=== PATIENT | female | born 1960 | race Hispanic/Latino ===

== ENCOUNTER 2020-11-01 21:20 | Inpatient (IN) | payer OTHER ==
[2020-11-01] MEDS ORDERED: Norepinephrine 8 MG/0.9% NS 250 ML ONE (22:07)
[2020-11-01 22:12] LABS: Hemoglobin 14.5 g/dL (12.0-15.5); Mean Corpuscular HGB CONC 33.8 g/dL (32.0-36.0); Mean Corpuscular Hemoglobin 30.7 pg (27.0-33.0); Mean Corpuscular Volume 90.7 fl (81.6-98.3); Mean Platelet Volume 11.6 fl (7.4-10.4); Platelet Count 131 10x3/uL (150-450); RBC Distribution Width 11.9 % (11.5-14.5); Red Blood Cell (RBC) Count 4.73 10x6/uL (3.90-5.03); White Blood Cell (WBC) Count 29.3 10x3/uL (3.5-10.5)
[2020-11-01 22:21] LABS: ALT (SGPT) 33 U/L (8-55); AST (SGOT) 24 U/L (5-34); Albumin 3.9 g/dL (3.5-5.0); Alkaline Phosphatase 234 U/L (40-110); Anion Gap 26 mmol/L (10-20); BUN (Urea Nitrogen) 26 mg/dL (9.8-20.1); Bilirubin, Total 0.3 mg/dL (0.2-1.2); CK (CPK) 440 U/L (29-168); Calc. Creatinine Clearance 0 mL/min (70-130); Carbon Dioxide 18 mmol/L (22-29); Chloride 95 mmol/L (98-107); Globulin 2.6 g/dL (2.4-3.5); Protein, Total 6.5 g/dL (6.0-8.3); Sodium 136 mmol/L (136-145)
[2020-11-01 22:27] LABS: Glucose 601 mg/dL (70-105); Potassium 2.9 mmol/L (3.5-5.1)
[2020-11-01 22:40] LABS: Bilirubin Neg (Negative); Blood, Urine 10 (Negative); Clarity Clear (Clear); Glucose, Urine (Dipstick) >=1000 mg/dL (Negative); Ketone, Urine Negative (Negative); Leukocyte Negative (Negative); Nitrite Negative (Negative); Protein, Urine (Dipstick) 30 mg/dl (Neg-Trace); Specific Gravity, Urine 1.015 (1.002-1.036); Urobilinogen Normal mg/dL (Less than 2)
[2020-11-01 22:46] LABS: Eosinophils 2 % (0-10); Lymphocytes 2 % (21-51); Metamyelocyte 7 % (0-0); Monocytes 4 % (0-10)
[2020-11-01 22:53] LABS: Band 36 % (5-11)
[2020-11-01 22:54] LABS: Myelocyte 4 % (0-0); Neutrophil 43 % (42-75); Reactive Lymphocytes 2 % (0-10)
[2020-11-01 22:58] LABS: Vacuoles MARKED
[2020-11-01] MEDS ORDERED: Potassium Chloride 20 MEQ/100 ML PREMIX BAG ONE (22:58)
[2020-11-01] MEDS ORDERED: Piperacillin/Tazobactam 4.5 GM VIAL ONE (22:58)
[2020-11-01 22:59] LABS: Dohle Bodies MODERATE; Giant Platelets MODERATE; Large Platelets MODERATE; Platelet Clumps SLIGHT; Platelet Morphology Comment Appears Decreased; Toxic Granulation SLIGHT
[2020-11-01 23:03] LABS: BHCG - Serum Negative (NEGATIVE); Pregs Control Background? CLEAR/WHITE (CLR/WHITE); Pregs Control Bar Appear? YES (CONTROL BAR)
[2020-11-01 23:03] LABS: RBC/HPF None Seen HPF (0-3); Squamous Epithelial 0-3 HPF (0-3); WBC/HPF None Seen HPF (0-3)
[2020-11-01 23:04] LABS: Bacteria/HPF 2+ HPF (None Seen); Mucous/LPF 1+ LPF (<2+)
[2020-11-01 23:05] LABS: Phosphorus 3.2 mg/dL (2.3-4.7)
[2020-11-01 23:06] LABS: MDiff Complete? YES; Manual Diff?? YES
[2020-11-01 23:07] LABS: Magnesium 1.3 mg/dL (1.6-2.6); RBC Morphology Normal
[2020-11-01 23:14] LABS: SARS-CoV-2 NAA Rapid Test Not Detected (NotDetected)
[2020-11-01] MEDS ORDERED: Magnesium 2 GM/50 ML BAG (IN WATER) ONE (23:47)
[2020-11-02] MEDS ORDERED: Hydrocortisone Sod Succ/PF 100 mg/2 ml Vial ONE (00:02)
[2020-11-02] MEDS ORDERED: Meropenem 500 MG VIAL ONE (00:19)
[2020-11-02] MEDS ORDERED: Sodium Chloride 0.9% 1,000 ML IV SCH (01:00)
[2020-11-02] MEDS ORDERED: Meropenem 2 GM in Sodium Chloride 0.9% 100 ML IVPB SCH (01:00)
[2020-11-02] MEDS ORDERED: Vancomycin HCl 500 MG in Sodium Chloride 0.9% 100 ML IVPB SCH (01:15)
[2020-11-02] MEDS: INSULIN REGULAR IN 0.9 % NACL 100 UNIT in Premix Bag 1 BAG IVPB SCH ×2 (02:00→18:44)
[2020-11-02] MEDS: Potassium Chloride 20 MEQ in Premix Bag 1 BAG IVPB SCH ×3 (02:00→04:23)
[2020-11-02] MEDS: Acetaminophen 325 MG TAB PO PRN ×2 (02:21→22:51)
[2020-11-02 02:53] LABS: Phosphorus 3.4 mg/dL (2.3-4.7)
[2020-11-02 02:55] LABS: Anion Gap 21 mmol/L (10-20); Globulin 2.6 g/dL (2.4-3.5)
[2020-11-02 03:02] LABS: Troponin I 0.015 ng/mL (< 0.028)
[2020-11-02 03:04] LABS: Lactic Acid 5.8 mmol/L (0.5-2.2)
[2020-11-02 03:09] LABS: ALT (SGPT) 27 U/L (8-55); AST (SGOT) 23 U/L (5-34); Albumin 3.1 g/dL (3.5-5.0); Alkaline Phosphatase 208 U/L (40-110); BUN (Urea Nitrogen) 25 mg/dL (9.8-20.1); Bilirubin, Total 0.4 mg/dL (0.2-1.2); Calc. Creatinine Clearance 31 mL/min (70-130); Calcium 7.6 mg/dL (7.8-10.44); Carbon Dioxide 15 mmol/L (22-29); Chloride 105 mmol/L (98-107); Glucose 492 mg/dL (70-105); Protein, Total 5.7 g/dL (6.0-8.3); Sodium 137 mmol/L (136-145)
[2020-11-02] MEDS ORDERED: Sodium Chloride 0.9% 500 ML IV SCH (04:30)
[2020-11-02] MEDS ORDERED: Magnesium 2 GM/50 ML 2 GM in Premix Bag 1 BAG IVPB SCH (04:30)
[2020-11-02] MEDS: Norepinephrine 8 MG/0.9% NS 250 ML IVPB SCH ×4 (04:37→21:23)
[2020-11-02 04:50] LABS: Actual Bicarbonate (HCO3a) 12.1 mEq/L (22-28); Base Excess (BEa) -13.1 mEq/L (-2.0 to +3.0); CO2 Tension 26.5 mmHg (35.0-45.0); Calcium, Ionized (arterial) 1.06 mmol/L (1.12-1.30); Carboxyhemoglobin (COHb) 0.5 gm% (0.0-3.0); Hemoglobin (Hb) 12.8 g/dL (12.0-16.0); O2 Tension (PaO2), arterial 71.4 mmHg (80.0-100.0); Potassium - ABG Lab 3.8 mmol/L (3.70-5.30); Puncture Site LRA; pH, Arterial 7.28 (7.35-7.45)
[2020-11-02 06:40] LABS: Anion Gap 21 mmol/L (10-20); BUN (Urea Nitrogen) 25 mg/dL (9.8-20.1); Calc. Creatinine Clearance 30 mL/min (70-130); Calcium 7.6 mg/dL (7.8-10.44); Carbon Dioxide 13 mmol/L (22-29); Chloride 111 mmol/L (98-107); Glucose 272 mg/dL (70-105); Magnesium 2.4 mg/dL (1.6-2.6); Potassium 3.6 mmol/L (3.5-5.1); Sodium 141 mmol/L (136-145)
[2020-11-02 06:46] LABS: Lactic Acid 8.3 mmol/L (0.5-2.2)
[2020-11-02 06:47] LABS: Troponin I 0.035 ng/mL (< 0.028)
[2020-11-02] MEDS ORDERED: Albumin 5% 250 ML ONE (07:14)
[2020-11-02] MEDS ORDERED: Lactated Ringer's 1,000 ML IV SCH (07:45)
[2020-11-02] MEDS: Phenylephrine 40 MG in Sodium Chloride 0.9% 250 ML 250 ML IVPB SCH ×2 (07:45→13:54)
[2020-11-02] MEDS ORDERED: Sodium Bicarb 50 MEQ/50 ML VIAL IVP SCH (07:45)
[2020-11-02] MEDS: Hydrocortisone Sod Succ/PF 100 mg/2 ml Vial IVP SCH ×2 (08:28→16:34)
[2020-11-02] MEDS: Fluconazole In NaCl,Iso-Osm 200 MG in Premix Bag 1 BAG IVPB SCH (08:28)
[2020-11-02 08:41] LABS: Hemoglobin 12.2 g/dL (12.0-15.5); MDiff Complete? YES; Mean Corpuscular HGB CONC 33.9 g/dL (32.0-36.0); Mean Corpuscular Hemoglobin 30.9 pg (27.0-33.0); Mean Corpuscular Volume 91.1 fl (81.6-98.3); Mean Platelet Volume 11.5 fl (7.4-10.4); Platelet Count 75 10x3/uL (150-450); Red Blood Cell (RBC) Count 3.95 10x6/uL (3.90-5.03); White Blood Cell (WBC) Count 17.7 10x3/uL (3.5-10.5)
[2020-11-02 08:57] LABS: Dohle Bodies SLIGHT; RBC Morphology Normal; Vacuoles SLIGHT
[2020-11-02] MEDS ORDERED: Heparin 5,000 UNITS/ML VIAL SC SCH (09:00)
[2020-11-02] MEDS ORDERED: Sodium Bicarbonate 150 MEQ in Dextrose 5% w/ 20 mEq KCl 1,000 ML IV SCH (09:15)
[2020-11-02] MEDS: Ondansetron PF 4 MG/2 ML Vial IVP PRN ×2 (09:26→18:07)
[2020-11-02] MEDS: Sodium Bicarbonate 150 MEQ in Dextrose 5% w/ 20 mEq KCl 1,000 ML IV SCH ×3 (09:49→21:23)
[2020-11-02] MEDS: Lorazepam 2 MG/ML VIAL SLOW IVP PRN ×2 (10:16→19:32)
[2020-11-02] MEDS ORDERED: Iopamidol 0 ML FS ONE (10:47)
[2020-11-02] MEDS: Meropenem 500 MG in Sodium Chloride 0.9% 100 ML IVPB SCH (11:25)
[2020-11-02 12:51] LABS: Anion Gap 17 mmol/L (10-20); BUN (Urea Nitrogen) 26 mg/dL (9.8-20.1); Calc. Creatinine Clearance 28 mL/min (70-130); Calcium 7.4 mg/dL (7.8-10.44); Carbon Dioxide 18 mmol/L (22-29); Chloride 111 mmol/L (98-107); Glucose 257 mg/dL (70-105); Sodium 142 mmol/L (136-145)
[2020-11-02] MEDS ORDERED: Dexamethasone 4 mg/ml Vial ONE (14:27)
[2020-11-02] MEDS ORDERED: Ondansetron PF 4 MG/2 ML Vial ONE (14:27)
[2020-11-02] MEDS ORDERED: PHENYLEPHRINE-NS 100 MCG/ML 10 ML SYRINGE ONE (14:28)
[2020-11-02] MEDS ORDERED: Lidocaine 1% PF 5 ML VIAL ONE (14:28)
[2020-11-02] MEDS ORDERED: PROPOFOL 20 ML ONE (14:29)
[2020-11-02] MEDS ORDERED: Fentanyl 100 MCG/2 ML VIAL ONE (14:29)
[2020-11-02] MEDS ORDERED: Iopamidol 20 ML FS ONE (14:37)
[2020-11-02] MEDS ORDERED: Metoclopramide HCl 10 MG/2 ML VIAL ONE (15:12)
[2020-11-02] MEDS ORDERED: Iopamidol 30 ML ONE (15:13)
[2020-11-02 16:50] LABS: Anion Gap 18 mmol/L (10-20); BUN (Urea Nitrogen) 28 mg/dL (9.8-20.1); Calc. Creatinine Clearance 27 mL/min (70-130); Calcium 7.3 mg/dL (7.8-10.44); Carbon Dioxide 18 mmol/L (22-29); Chloride 108 mmol/L (98-107); Glucose 288 mg/dL (70-105); Potassium 4.4 mmol/L (3.5-5.1); Sodium 140 mmol/L (136-145)
[2020-11-02 17:03] LABS: Hemoglobin 12.7 g/dL (12.0-15.5); Mean Corpuscular HGB CONC 33.5 g/dL (32.0-36.0); Mean Corpuscular Hemoglobin 30.4 pg (27.0-33.0); Mean Corpuscular Volume 90.7 fl (81.6-98.3); Mean Platelet Volume 12.4 fl (7.4-10.4); Platelet Count 65 10x3/uL (150-450); RBC Distribution Width 12.5 % (11.5-14.5); Red Blood Cell (RBC) Count 4.18 10x6/uL (3.90-5.03); White Blood Cell (WBC) Count 20.5 10x3/uL (3.5-10.5)
[2020-11-02 18:26] LABS: MDiff Complete? YES
[2020-11-02] MEDS ORDERED: Rocuronium Bromide 10 MG/ML (10ML VIAL) ONE (19:05)
[2020-11-02] MEDS ORDERED: Succinylcholine 200 MG/10 ml SYRINGE FS ONE (19:05)
[2020-11-02 19:07] LABS: Band 7 % (5-11)
[2020-11-02 19:10] LABS: Lymphocytes 8 % (21-51); Metamyelocyte 2 % (0-0); Monocytes 5 % (0-10); Myelocyte 1 % (0-0); Neutrophil 76 % (42-75); Reactive Lymphocytes 1 % (0-10)
[2020-11-02 19:38] LABS: Platelet Morphology Comment Appears Decreased; RBC Morphology Normal
[2020-11-02 20:50] LABS: Actual Bicarbonate (HCO3a) 21.1 mEq/L (22-28); Base Excess (BEa) -3.1 mEq/L (-2.0 to +3.0); CO2 Tension 35.3 mmHg (35.0-45.0); Carboxyhemoglobin (COHb) 0.3 gm% (0.0-3.0); Hemoglobin (Hb) 13.1 g/dL (12.0-16.0); O2 Tension (PaO2), arterial 61.1 mmHg (80.0-100.0)
[2020-11-02 20:53] LABS: ALV-art Gradient 244.145 mmHg (0-20)
[2020-11-02] MEDS ORDERED: Furosemide 40 MG/4 ML VIAL SLOW IVP SCH (21:30)
[2020-11-02 21:49] LABS: Anion Gap 16 mmol/L (10-20)
[2020-11-02 21:56] LABS: BUN (Urea Nitrogen) 29 mg/dL (9.8-20.1); Calc. Creatinine Clearance 26 mL/min (70-130); Calcium 7.3 mg/dL (7.8-10.44); Carbon Dioxide 22 mmol/L (22-29); Chloride 106 mmol/L (98-107); Glucose 210 mg/dL (70-105); Phosphorus 1.5 mg/dL (2.3-4.7); Potassium 3.9 mmol/L (3.5-5.1); Sodium 140 mmol/L (136-145)
[2020-11-02] MEDS ORDERED: Sodium Phosphate 15 MMOL in Sodium Chloride 0.9% 250 ML 250 ML IVPB SCH (22:45)
[2020-11-03] MEDS: Meropenem 500 MG in Sodium Chloride 0.9% 100 ML IVPB SCH ×2 (00:01→11:23)
[2020-11-03] MEDS: Hydrocortisone Sod Succ/PF 100 mg/2 ml Vial IVP SCH ×3 (00:01→15:46)
[2020-11-03 01:42] LABS: Anion Gap 16 mmol/L (10-20); BUN (Urea Nitrogen) 30 mg/dL (9.8-20.1); Calc. Creatinine Clearance 25 mL/min (70-130); Calcium 7.3 mg/dL (7.8-10.44); Carbon Dioxide 25 mmol/L (22-29); Chloride 105 mmol/L (98-107); Glucose 152 mg/dL (70-105); Magnesium 1.9 mg/dL (1.6-2.6); Potassium 4.1 mmol/L (3.5-5.1); Sodium 142 mmol/L (136-145)
[2020-11-03 01:46] LABS: Phosphorus 1.8 mg/dL (2.3-4.7)
[2020-11-03] MEDS: Lorazepam 2 MG/ML VIAL SLOW IVP PRN (02:03)
[2020-11-03 04:42] LABS: Hemoglobin 12.1 g/dL (12.0-15.5); Mean Corpuscular HGB CONC 34.6 g/dL (32.0-36.0); Mean Corpuscular Hemoglobin 30.5 pg (27.0-33.0); Mean Corpuscular Volume 88.2 fl (81.6-98.3); Mean Platelet Volume 11.8 fl (7.4-10.4); Platelet Count 56 10x3/uL (150-450); RBC Distribution Width 12.4 % (11.5-14.5); Red Blood Cell (RBC) Count 3.97 10x6/uL (3.90-5.03); White Blood Cell (WBC) Count 25.4 10x3/uL (3.5-10.5)
[2020-11-03] MEDS ORDERED: Furosemide 100 MG/10 ML VIAL SLOW IVP SCH (04:45)
[2020-11-03 05:00] LABS: Anion Gap 15 mmol/L (10-20); BUN (Urea Nitrogen) 32 mg/dL (9.8-20.1); Calc. Creatinine Clearance 25 mL/min (70-130); Calcium 7.3 mg/dL (7.8-10.44); Carbon Dioxide 28 mmol/L (22-29); Chloride 104 mmol/L (98-107); Glucose 195 mg/dL (70-105); Magnesium 1.9 mg/dL (1.6-2.6); Potassium 4.2 mmol/L (3.5-5.1); Sodium 143 mmol/L (136-145)
[2020-11-03 05:03] LABS: Phosphorus 1.9 mg/dL (2.3-4.7)
[2020-11-03 05:14] LABS: Troponin I 0.505 ng/mL (< 0.028)
[2020-11-03] MEDS: INSULIN REGULAR IN 0.9 % NACL 100 UNIT in Premix Bag 1 BAG IVPB SCH (05:16)
[2020-11-03 05:17] LABS: ALV-art Gradient 254.375 mmHg (0-20); Actual Bicarbonate (HCO3a) 25.5 mEq/L (22-28); Base Excess (BEa) 1.1 mEq/L (-2.0 to +3.0); CO2 Tension 39.7 mmHg (35.0-45.0); Calcium, Ionized (arterial) 0.96 mmol/L (1.12-1.30); Carboxyhemoglobin (COHb) 0.7 gm% (0.0-3.0); Hemoglobin (Hb) 12.9 g/dL (12.0-16.0); O2 Tension (PaO2), arterial 52.5 mmHg (80.0-100.0); Potassium - ABG Lab 3.7 mmol/L (3.70-5.30); Puncture Site LRA; pH, Arterial 7.43 (7.35-7.45)
[2020-11-03 05:20] LABS: Band 28 % (5-11); Lymphocytes 5 % (21-51); Metamyelocyte 2 % (0-0); Monocytes 8 % (0-10); Myelocyte 1 % (0-0); Neutrophil 54 % (42-75); Reactive Lymphocytes 2 % (0-10)
[2020-11-03 05:22] LABS: Dohle Bodies MARKED; Large Platelets SLIGHT; Toxic Granulation SLIGHT; Vacuoles MARKED
[2020-11-03 05:23] LABS: Platelet Morphology Comment Appears Decreased
[2020-11-03 05:24] LABS: MDiff Complete? YES; Manual Diff?? YES; RBC Morphology Normal
[2020-11-03] MEDS: Sodium Bicarbonate 150 MEQ in Dextrose 5% w/ 20 mEq KCl 1,000 ML IV SCH (06:05)
[2020-11-03] MEDS: Fluconazole In NaCl,Iso-Osm 200 MG in Premix Bag 1 BAG IVPB SCH (07:52)
[2020-11-03] MEDS ORDERED: Furosemide 40 MG/4 ML VIAL SLOW IVP SCH ×2 (08:30→17:30)
[2020-11-03] MEDS: Norepinephrine 8 MG/0.9% NS 250 ML IVPB SCH ×2 (08:50→20:42)
[2020-11-03] MEDS ORDERED: Enoxaparin Sodium 30 MG/0.3 ML SYRINGE SC SCH (09:00)
[2020-11-03 11:22] LABS: Actual Bicarbonate (HCO3a) 24.8 mEq/L (22-28); Base Excess (BEa) 1.2 mEq/L (-2.0 to +3.0); CO2 Tension 36.3 mmHg (35.0-45.0); Calcium, Ionized (arterial) 0.93 mmol/L (1.12-1.30); Carboxyhemoglobin (COHb) 0.3 gm% (0.0-3.0); Hemoglobin (Hb) 13.1 g/dL (12.0-16.0); O2 Tension (PaO2), arterial 58.3 mmHg (80.0-100.0); Potassium - ABG Lab 3.8 mmol/L (3.70-5.30); Puncture Site RBA; pH, Arterial 7.45 (7.35-7.45)
[2020-11-03 11:24] LABS: ALV-art Gradient 324.125 mmHg (0-20)
[2020-11-03 12:08] LABS: Phosphorus 2.6 mg/dL (2.3-4.7)
[2020-11-03] MEDS ORDERED: Fentanyl BOLUS 250 ML IVPB PRN (14:30)
[2020-11-03] MEDS ORDERED: Propofol BOLUS 1,000 MG/100 ML VIAL IV PRN (14:30)
[2020-11-03] MEDS ORDERED: Heparin 5,000 UNITS/ML VIAL SC SCH (15:00)
[2020-11-03] MEDS ORDERED: Dextrose 5% in Water 1,000 ML IV PRN (15:42)
[2020-11-03] MEDS ORDERED: Dextrose 50% Abboject 50 ML SYRINGE SLOW IVP PRN (15:42)
[2020-11-03] MEDS: Propofol 1,000 MG/100 ML VIAL IV PRN ×2 (15:43→21:25)
[2020-11-03] MEDS: Fentanyl CADD 100 ML IV SCH (15:44)
[2020-11-03 15:55] LABS: Actual Bicarbonate (HCO3a) 25.5 mEq/L (22-28); Base Excess (BEa) 0.8 mEq/L (-2.0 to +3.0); Calcium, Ionized (arterial) 0.93 mmol/L (1.12-1.30); Carboxyhemoglobin (COHb) 0.4 gm% (0.0-3.0); Hemoglobin (Hb) 13.8 g/dL (12.0-16.0); Puncture Site LRA; pH, Arterial 7.41 (7.35-7.45)
[2020-11-03] MEDS ORDERED: VANCOMYCIN 1.25 GM/250 ML BAG 1.25 GM in Premix Bag 1 BAG IVPB SCH ×2 (18:00→18:30)
[2020-11-03] MEDS ORDERED: Atorvastatin Calcium 40 MG TAB PO SCH (18:00)
[2020-11-03] MEDS ORDERED: Aspirin Chewable 81 MG TAB PER TUBE SCH (18:00)
[2020-11-03] MEDS ORDERED: Atorvastatin Calcium 40 MG TAB PER TUBE SCH (18:00)
[2020-11-03] MEDS ORDERED: Enoxaparin Sodium 80 MG/0.8 ML SYRINGE SC SCH (18:00)
[2020-11-03 18:05] LABS: Magnesium 1.8 mg/dL (1.6-2.6); Phosphorus 3.1 mg/dL (2.3-4.7)
[2020-11-03 18:14] LABS: Troponin I 1.852 ng/mL (< 0.028)
[2020-11-03 20:38] LABS: Hemoglobin A1c 12.6 % (4.0-6.0)
[2020-11-03] MEDS ORDERED: Famotidine/PF 20 mg/2ml Vial SLOW IVP SCH (21:00)
[2020-11-03 21:03] LABS: Hemoglobin 11.9 g/dL (12.0-15.5)
[2020-11-03 21:04] LABS: Platelet Count 52 10x3/uL (150-450)
[2020-11-03] MEDS: HumaLOG 300 UNITS/3 ML VIAL SC PRN (21:25)
[2020-11-03] MEDS ORDERED: Vancomycin HCl 1 GM in Sodium Chloride 0.9% 250 ML 250 ML IVPB SCH (22:00)
[2020-11-04] MEDS: Hydrocortisone Sod Succ/PF 100 mg/2 ml Vial IVP SCH (00:01)
[2020-11-04] MEDS: Meropenem 500 MG in Sodium Chloride 0.9% 100 ML IVPB SCH ×2 (00:02→12:15)
[2020-11-04] MEDS ORDERED: Vancomycin HCl 1 GM in Sodium Chloride 0.9% 250 ML 300 ML IVPB SCH (00:45)
[2020-11-04] MEDS: Propofol 1,000 MG/100 ML VIAL IV PRN ×3 (03:51→18:22)
[2020-11-04 04:09] LABS: Hemoglobin 11.9 g/dL (12.0-15.5); Mean Corpuscular HGB CONC 33.3 g/dL (32.0-36.0); Mean Corpuscular Volume 89.9 fl (81.6-98.3); Mean Platelet Volume 12.5 fl (7.4-10.4); Platelet Count 58 10x3/uL (150-450); RBC Distribution Width 13.1 % (11.5-14.5); Red Blood Cell (RBC) Count 3.97 10x6/uL (3.90-5.03); White Blood Cell (WBC) Count 29.4 10x3/uL (3.5-10.5)
[2020-11-04 04:27] LABS: Anion Gap 24 mmol/L (10-20); BUN (Urea Nitrogen) 52 mg/dL (9.8-20.1); CK (CPK) 148 U/L (29-168); Calc. Creatinine Clearance 22 mL/min (70-130); Calcium 7.1 mg/dL (7.8-10.44); Carbon Dioxide 20 mmol/L (22-29); Chloride 102 mmol/L (98-107); Glucose 309 mg/dL (70-105); Potassium 4.4 mmol/L (3.5-5.1); Sodium 142 mmol/L (136-145)
[2020-11-04 04:45] LABS: CKMB 3.6 ng/mL (0-6.6)
[2020-11-04 05:00] LABS: MDiff Complete? YES
[2020-11-04] MEDS: Norepinephrine 8 MG/0.9% NS 250 ML IVPB SCH (05:05)
[2020-11-04 05:07] LABS: Band 32 % (5-11); Lymphocytes 7 % (21-51); Monocytes 16 % (0-10); Neutrophil 45 % (42-75)
[2020-11-04 05:09] LABS: Anisocytosis SLIGHT = 6-15 cells (100X) (0-5/hpf); Platelet Morphology Comment Appears Adequate; Poikilocytosis SLIGHT = 6-15 cells (100X) (0-5/hpf); Toxic Granulation SLIGHT; Vacuoles SLIGHT
[2020-11-04] MEDS ORDERED: Heparin 10,000 UNITS/ 10 ML VIAL SLOW IVP SCH (06:00)
[2020-11-04] MEDS ORDERED: Heparin 25,000 units/D5W 500 ML IVPB SCH (06:00)
[2020-11-04] MEDS: HumaLOG 300 UNITS/3 ML VIAL SC PRN ×4 (06:55→21:36)
[2020-11-04 09:18] LABS: D-Dimer Test 5.62 mg/L FEU (0.19-0.50); INR-International Normal Ratio 1.1; PTT 34.5 sec (22.0-33.0)
[2020-11-04] MEDS: Fluconazole In NaCl,Iso-Osm 200 MG in Premix Bag 1 BAG IVPB SCH (09:20)
[2020-11-04] MEDS: Lantus 1000 UNITS/10 ML VIAL SC SCH (09:20)
[2020-11-04] MEDS: Aspirin Chewable 81 MG TAB PER TUBE SCH (09:20)
[2020-11-04] MEDS: Fentanyl CADD 100 ML IV SCH (11:36)
[2020-11-04] MEDS ORDERED: Lidocaine 4% Topical Sol 50 ML BOT ONE (12:34)
[2020-11-04 13:44] LABS: Actual Bicarbonate (HCO3a) 19.7 mEq/L (22-28); Base Excess (BEa) -4.1 mEq/L (-2.0 to +3.0); CO2 Tension 32.2 mmHg (35.0-45.0); Calcium, Ionized (arterial) 0.97 mmol/L (1.12-1.30); Carboxyhemoglobin (COHb) 0.3 gm% (0.0-3.0); Hemoglobin (Hb) 12.6 g/dL (12.0-16.0); Potassium - ABG Lab 4.3 mmol/L (3.70-5.30); Puncture Site RRA
[2020-11-04] MEDS: Enoxaparin Sodium 80 MG/0.8 ML SYRINGE SC SCH (17:29)
[2020-11-04 18:54] LABS: Vancomycin, Random 22.2 ug/mL (See Comment)
[2020-11-04] MEDS: Famotidine/PF 20 mg/2ml Vial SLOW IVP SCH (20:53)
[2020-11-05] MEDS: Meropenem 500 MG in Sodium Chloride 0.9% 100 ML IVPB SCH ×2 (00:55→12:35)
[2020-11-05] MEDS: HumaLOG 300 UNITS/3 ML VIAL SC PRN ×3 (00:55→12:36)
[2020-11-05] MEDS: Propofol 1,000 MG/100 ML VIAL IV PRN ×3 (01:03→22:00)
[2020-11-05 04:14] LABS: Hemoglobin 11.2 g/dL (12.0-15.5); Mean Corpuscular HGB CONC 34.1 g/dL (32.0-36.0); Mean Corpuscular Hemoglobin 30.6 pg (27.0-33.0); Mean Corpuscular Volume 89.6 fl (81.6-98.3); Mean Platelet Volume 12.2 fl (7.4-10.4); Platelet Count 50 10x3/uL (150-450); Red Blood Cell (RBC) Count 3.66 10x6/uL (3.90-5.03); White Blood Cell (WBC) Count 17.2 10x3/uL (3.5-10.5)
[2020-11-05 04:23] LABS: Anion Gap 16 mmol/L (10-20); BUN (Urea Nitrogen) 69 mg/dL (9.8-20.1); Calc. Creatinine Clearance 21 mL/min (70-130); Calcium 7.3 mg/dL (7.8-10.44); Carbon Dioxide 27 mmol/L (22-29); Chloride 106 mmol/L (98-107); Glucose 223 mg/dL (70-105); Potassium 3.6 mmol/L (3.5-5.1); Sodium 145 mmol/L (136-145)
[2020-11-05 05:37] LABS: MDiff Complete? YES
[2020-11-05 05:41] LABS: Band 47 % (5-11); Lymphocytes 13 % (21-51); Metamyelocyte 1 % (0-0); Monocytes 4 % (0-10); Neutrophil 35 % (42-75)
[2020-11-05 05:43] LABS: Anisocytosis SLIGHT = 6-15 cells (100X) (0-5/hpf); Rouleaux Formation SLIGHT = 1-5 cells (100X) (None Seen); Toxic Granulation SLIGHT; Vacuoles SLIGHT
[2020-11-05 05:44] LABS: Platelet Morphology Comment Appears Decreased
[2020-11-05] MEDS: Lantus 1000 UNITS/10 ML VIAL SC SCH (08:03)
[2020-11-05] MEDS: Fluconazole In NaCl,Iso-Osm 200 MG in Premix Bag 1 BAG IVPB SCH (08:03)
[2020-11-05] MEDS: Aspirin Chewable 81 MG TAB PER TUBE SCH (08:03)
[2020-11-05 10:22] LABS: Vancomycin, Random 19.1 ug/mL (See Comment)
[2020-11-05] MEDS: Fentanyl CADD 100 ML IV SCH (10:54)
[2020-11-05 11:36] LABS: ALV-art Gradient 122.375 mmHg (0-20); Actual Bicarbonate (HCO3a) 24.1 mEq/L (22-28); Base Excess (BEa) 2.1 mEq/L (-2.0 to +3.0); CO2 Tension 29.5 mmHg (35.0-45.0); Calcium, Ionized (arterial) 1.02 mmol/L (1.12-1.30); Carboxyhemoglobin (COHb) 0.3 gm% (0.0-3.0); Hemoglobin (Hb) 11.9 g/dL (12.0-16.0); O2 Tension (PaO2), arterial 232.9 mmHg (80.0-100.0); Potassium - ABG Lab 3.5 mmol/L (3.70-5.30); Puncture Site RRA; pH, Arterial 7.53 (7.35-7.45)
[2020-11-05] MEDS: Enoxaparin Sodium 80 MG/0.8 ML SYRINGE SC SCH (17:28)
[2020-11-05] MEDS: cefTRIAXone\\ROCEPHIN 2 GM in Sodium Chloride 0.9% 100 ML IVPB SCH (17:28)
[2020-11-05] MEDS: Famotidine/PF 20 mg/2ml Vial SLOW IVP SCH (20:09)
[2020-11-06] MEDS: HumaLOG 300 UNITS/3 ML VIAL SC PRN ×3 (01:34→08:16)
[2020-11-06 04:09] LABS: Anion Gap 16 mmol/L (10-20); BUN (Urea Nitrogen) 81 mg/dL (9.8-20.1); Calc. Creatinine Clearance 21 mL/min (70-130); Calcium 7.6 mg/dL (7.8-10.44); Carbon Dioxide 28 mmol/L (22-29); Chloride 104 mmol/L (98-107); Glucose 151 mg/dL (70-105); Hemoglobin 10.4 g/dL (12.0-15.5); Mean Corpuscular HGB CONC 33.7 g/dL (32.0-36.0); Mean Corpuscular Hemoglobin 30.8 pg (27.0-33.0); Mean Corpuscular Volume 91.4 fl (81.6-98.3); Mean Platelet Volume 12.3 fl (7.4-10.4); Platelet Count 53 10x3/uL (150-450); Potassium 3.5 mmol/L (3.5-5.1); RBC Distribution Width 13.3 % (11.5-14.5); Red Blood Cell (RBC) Count 3.38 10x6/uL (3.90-5.03); Sodium 144 mmol/L (136-145); White Blood Cell (WBC) Count 14.8 10x3/uL (3.5-10.5)
[2020-11-06 05:25] LABS: MDiff Complete? YES
[2020-11-06 05:30] LABS: Anisocytosis SLIGHT = 6-15 cells (100X) (0-5/hpf); Band 45 % (5-11); Eosinophils 1 % (0-10); Lymphocytes 10 % (21-51); Monocytes 4 % (0-10); Neutrophil 40 % (42-75); Poikilocytosis SLIGHT = 6-15 cells (100X) (0-5/hpf); Toxic Granulation SLIGHT; Vacuoles SLIGHT
[2020-11-06 05:31] LABS: Platelet Morphology Comment Appears Decreased
[2020-11-06] MEDS: Propofol 1,000 MG/100 ML VIAL IV PRN (07:05)
[2020-11-06] MEDS: Aspirin Chewable 81 MG TAB PER TUBE SCH (08:15)
[2020-11-06] MEDS: Fluconazole In NaCl,Iso-Osm 200 MG in Premix Bag 1 BAG IVPB SCH (08:15)
[2020-11-06] MEDS: Lantus 1000 UNITS/10 ML VIAL SC SCH (08:16)
[2020-11-06] MEDS ORDERED: Vancomycin HCl 500 MG in Sodium Chloride 0.9% 100 ML IVPB SCH (09:00)
[2020-11-06 09:27] LABS: Actual Bicarbonate (HCO3a) 27.2 mEq/L (22-28); Base Excess (BEa) 2.7 mEq/L (-2.0 to +3.0); CO2 Tension 41.5 mmHg (35.0-45.0); Calcium, Ionized (arterial) 1.06 mmol/L (1.12-1.30); Carboxyhemoglobin (COHb) 0.1 gm% (0.0-3.0); Hemoglobin (Hb) 12.1 g/dL (12.0-16.0); Potassium - ABG Lab 3.6 mmol/L (3.70-5.30); Puncture Site RRA; RapidComm Collect By EA; pH, Arterial 7.43 (7.35-7.45)
[2020-11-06 09:30] LABS: ALV-art Gradient 108.325 mmHg (0-20)
[2020-11-06] MEDS ORDERED: Furosemide 40 MG/4 ML VIAL SLOW IVP SCH (11:15)
[2020-11-06] MEDS: cefTRIAXone\\ROCEPHIN 2 GM in Sodium Chloride 0.9% 100 ML IVPB SCH (16:30)
[2020-11-06] MEDS: Enoxaparin Sodium 80 MG/0.8 ML SYRINGE SC SCH (17:08)
[2020-11-06] MEDS: Cefepime 2 GM in Sodium Chloride 0.9% 100 ML IVPB SCH (17:40)
[2020-11-06] MEDS: Famotidine/PF 20 mg/2ml Vial SLOW IVP SCH (20:16)
[2020-11-07] MEDS: Cefepime 2 GM in Sodium Chloride 0.9% 100 ML IVPB SCH ×2 (05:53→17:05)
[2020-11-07] MEDS: Fluconazole In NaCl,Iso-Osm 200 MG in Premix Bag 1 BAG IVPB SCH (07:57)
[2020-11-07] MEDS: Aspirin Chewable 81 MG TAB PER TUBE SCH (07:57)
[2020-11-07 08:22] LABS: Hemoglobin 11.8 g/dL (12.0-15.5); Mean Corpuscular HGB CONC 32.7 g/dL (32.0-36.0); Mean Corpuscular Hemoglobin 30.1 pg (27.0-33.0); Mean Corpuscular Volume 92.1 fl (81.6-98.3); Mean Platelet Volume 11.6 fl (7.4-10.4); Platelet Count 92 10x3/uL (150-450); RBC Distribution Width 13.2 % (11.5-14.5); Red Blood Cell (RBC) Count 3.92 10x6/uL (3.90-5.03); White Blood Cell (WBC) Count 17.1 10x3/uL (3.5-10.5)
[2020-11-07] MEDS ORDERED: Furosemide 40 MG/4 ML VIAL SLOW IVP SCH (08:30)
[2020-11-07 08:42] LABS: MDiff Complete? YES
[2020-11-07 08:44] LABS: Anion Gap 19 mmol/L (10-20); BUN (Urea Nitrogen) 69 mg/dL (9.8-20.1); Calc. Creatinine Clearance 22 mL/min (70-130); Carbon Dioxide 28 mmol/L (22-29); Chloride 103 mmol/L (98-107); Glucose 225 mg/dL (70-105); Potassium 3.5 mmol/L (3.5-5.1); Sodium 146 mmol/L (136-145)
[2020-11-07 08:46] LABS: Band 7 % (5-11); Eosinophils 1 % (0-10); Lymphocytes 17 % (21-51); Monocytes 10 % (0-10); Neutrophil 65 % (42-75)
[2020-11-07 08:47] LABS: Platelet Morphology Comment Appears Decreased
[2020-11-07] MEDS: Lantus 1000 UNITS/10 ML VIAL SC SCH (08:47)
[2020-11-07] MEDS: HumaLOG 300 UNITS/3 ML VIAL SC PRN ×4 (08:59→23:09)
[2020-11-07] MEDS ORDERED: Valsartan 80 MG TAB PO SCH (09:00)
[2020-11-07] MEDS ORDERED: Hydrochlorothiazide 25 MG TAB PO SCH (09:00)
[2020-11-07] MEDS: Enoxaparin Sodium 80 MG/0.8 ML SYRINGE SC SCH (17:05)
[2020-11-07] MEDS: Famotidine/PF 20 mg/2ml Vial SLOW IVP SCH (22:28)
[2020-11-08] MEDS ORDERED: Cefepime 2 GM VIAL ONE ×2 (04:36→15:59)
[2020-11-08] MEDS: Cefepime 2 GM in Sodium Chloride 0.9% 100 ML IVPB SCH ×2 (04:39→16:00)
[2020-11-08] MEDS: HumaLOG 300 UNITS/3 ML VIAL SC PRN ×4 (04:50→21:26)
[2020-11-08 05:31] LABS: Albumin 2.7 g/dL (3.5-5.0); Anion Gap 14 mmol/L (10-20); BUN (Urea Nitrogen) 57 mg/dL (9.8-20.1); BUN/Creatinine Ratio 21.51; Calc. Creatinine Clearance 24 mL/min (70-130); Calcium 7.8 mg/dL (7.8-10.44); Carbon Dioxide 31 mmol/L (22-29); Chloride 99 mmol/L (98-107); Glucose 165 mg/dL (70-105); Phosphorus 4.1 mg/dL (2.3-4.7); Potassium 3.2 mmol/L (3.5-5.1); Sodium 141 mmol/L (136-145)
[2020-11-08] MEDS: Lantus 1000 UNITS/10 ML VIAL SC SCH (08:20)
[2020-11-08] MEDS: Fluconazole In NaCl,Iso-Osm 200 MG in Premix Bag 1 BAG IVPB SCH (08:28)
[2020-11-08] MEDS: Aspirin Chewable 81 MG TAB PER TUBE SCH (08:28)
[2020-11-08 09:53] LABS: Bilirubin Neg (Negative); Blood, Urine 250 (Negative); Clarity Cloudy (Clear); Glucose, Urine (Dipstick) 100 mg/dL (Negative); Ketone, Urine Negative (Negative); Leukocyte 100 (Negative); Nitrite Negative (Negative); Protein, Urine (Dipstick) 30 mg/dl (Neg-Trace); Urobilinogen Normal mg/dL (Less than 2)
[2020-11-08 09:56] LABS: Urine Culture Reflex No No
[2020-11-08 10:38] LABS: RBC/HPF Greater than 50 HPF (0-3); Squamous Epithelial 0-3 HPF (0-3)
[2020-11-08 10:39] LABS: Bacteria/HPF None Seen HPF (None Seen)
[2020-11-08] MEDS ORDERED: Sodium Chloride 0.9% 100 ML ONE (15:59)
[2020-11-08] MEDS: Enoxaparin Sodium 80 MG/0.8 ML SYRINGE SC SCH (16:01)
[2020-11-08] MEDS: Famotidine/PF 20 mg/2ml Vial SLOW IVP SCH (21:04)
[2020-11-08] MEDS: Metoprolol Tartrate 25 MG TAB PO SCH (21:13)
[2020-11-08] MEDS: Enoxaparin Sodium 30 MG/0.3 ML SYRINGE SC SCH (22:56)
[2020-11-09] MEDS: Lorazepam 2 MG/ML VIAL SLOW IVP PRN (00:04)
[2020-11-09] MEDS: Cefepime 2 GM in Sodium Chloride 0.9% 100 ML IVPB SCH (05:12)
[2020-11-09 06:53] LABS: Albumin 2.7 g/dL (3.5-5.0); Anion Gap 14 mmol/L (10-20); BUN (Urea Nitrogen) 45 mg/dL (9.8-20.1); BUN/Creatinine Ratio 20.64; Calc. Creatinine Clearance 30 mL/min (70-130); Calcium 7.9 mg/dL (7.8-10.44); Carbon Dioxide 32 mmol/L (22-29); Chloride 99 mmol/L (98-107); Glucose 185 mg/dL (70-105); Phosphorus 3.6 mg/dL (2.3-4.7); Potassium 3.1 mmol/L (3.5-5.1); Sodium 142 mmol/L (136-145)
[2020-11-09 08:42] LABS: Fungus Stain Final report (.)
[2020-11-09] MEDS: Pantoprazole 40 MG GRANULES PACKET PO SCH (09:20)
[2020-11-09] MEDS: Aspirin Chewable 81 MG TAB PER TUBE SCH (09:20)
[2020-11-09] MEDS: Metoprolol Tartrate 25 MG TAB PO SCH ×2 (09:20→22:00)
[2020-11-09] MEDS: Potassium Chloride 20 MEQ TAB PO SCH ×2 (09:20→16:20)
[2020-11-09] MEDS: Lantus 1000 UNITS/10 ML VIAL SC SCH (09:21)
[2020-11-09] MEDS: HumaLOG 300 UNITS/3 ML VIAL SC PRN ×2 (12:25→16:20)
[2020-11-09] MEDS: Ondansetron PF 4 MG/2 ML Vial IVP PRN (12:51)
[2020-11-09] MEDS: Enoxaparin Sodium 30 MG/0.3 ML SYRINGE SC SCH (22:00)
[2020-11-09] MEDS: Acetaminophen 325 MG TAB PO PRN (23:58)
[2020-11-10] MEDS: HumaLOG 300 UNITS/3 ML VIAL SC PRN ×5 (00:16→20:10)
[2020-11-10 05:35] LABS: #Eosinphils 0.1 10x3/uL (0.0-0.5); #Neutrophils 12.1 10x3/uL (1.5-8.4); %Basophils 0.2 % (0.0-2.0); %Eosinophils 0.7 % (0.0-6.0); %Lymphocytes 15.7 % (18.0-47.0); %Monocytes 6.4 % (0.0-10.0); Hemoglobin 10.9 g/dL (12.0-15.5); Mean Corpuscular HGB CONC 32.9 g/dL (32.0-36.0); Mean Corpuscular Hemoglobin 29.9 pg (27.0-33.0); Mean Corpuscular Volume 90.7 fl (81.6-98.3); Mean Platelet Volume 10.8 fl (7.4-10.4); Platelet Count 224 10x3/uL (150-450); Red Blood Cell (RBC) Count 3.65 10x6/uL (3.90-5.03); White Blood Cell (WBC) Count 16.1 10x3/uL (3.5-10.5)
[2020-11-10 05:39] LABS: Albumin 2.8 g/dL (3.5-5.0); Anion Gap 15 mmol/L (10-20); BUN (Urea Nitrogen) 36 mg/dL (9.8-20.1); BUN/Creatinine Ratio 18.27; Calc. Creatinine Clearance 33 mL/min (70-130); Carbon Dioxide 27 mmol/L (22-29); Chloride 101 mmol/L (98-107); Glucose 214 mg/dL (70-105); Phosphorus 3.4 mg/dL (2.3-4.7); Potassium 3.8 mmol/L (3.5-5.1); Sodium 139 mmol/L (136-145)
[2020-11-10] MEDS: Cefepime 2 GM in Sodium Chloride 0.9% 100 ML IVPB SCH (06:18)
[2020-11-10] MEDS: Metoprolol Tartrate 25 MG TAB PO SCH ×2 (09:05→20:07)
[2020-11-10] MEDS: Aspirin Chewable 81 MG TAB PER TUBE SCH (09:05)
[2020-11-10] MEDS: Lantus 1000 UNITS/10 ML VIAL SC SCH (09:05)
[2020-11-10] MEDS: Pantoprazole 40 MG GRANULES PACKET PO SCH (09:05)
[2020-11-10] MEDS: Acetaminophen 325 MG TAB PO PRN (11:24)
[2020-11-10 12:59] VITALS: BMI 25.4
[2020-11-10] MEDS: Enoxaparin Sodium 30 MG/0.3 ML SYRINGE SC SCH (20:06)
[2020-11-11] MEDS: HumaLOG 300 UNITS/3 ML VIAL SC PRN ×2 (01:45→12:00)
[2020-11-11 05:23] LABS: Anion Gap 12 mmol/L (10-20); BUN (Urea Nitrogen) 31 mg/dL (9.8-20.1); BUN/Creatinine Ratio 18.02; Calc. Creatinine Clearance 37 mL/min (70-130); Calcium 8.2 mg/dL (7.8-10.44); Carbon Dioxide 28 mmol/L (22-29); Chloride 99 mmol/L (98-107); Glucose 182 mg/dL (70-105); Phosphorus 3.7 mg/dL (2.3-4.7); Potassium 3.6 mmol/L (3.5-5.1); Sodium 135 mmol/L (136-145)
[2020-11-11] MEDS: Cefepime 2 GM in Sodium Chloride 0.9% 100 ML IVPB SCH (06:43)
[2020-11-11 07:42] VITALS: TEMP 98.3
[2020-11-11] MEDS: Metoprolol Tartrate 25 MG TAB PO SCH (08:35)
[2020-11-11] MEDS: Aspirin Chewable 81 MG TAB PER TUBE SCH (08:35)
[2020-11-11] MEDS: Pantoprazole 40 MG GRANULES PACKET PO SCH (08:35)
[2020-11-11] MEDS: Lantus 1000 UNITS/10 ML VIAL SC SCH (08:36)
[2020-11-11 11:45] VITALS: BP 125/69
[2020-12-01 16:11] LABS: Fungus Culture Final report (.)
== END 2020-11-11 15:52 | DRG 853 ==
LOC: CSHERS 21:20 → CSHIMCU 11-02 00:54 → CSHTELE 11-07 16:22
PROVIDERS: ADMIT Family Medicine; ATTEND Hospitalist
PROC: 3E053XZ Introduction of Vasopressor into Peripheral Artery, Percutaneous Approach (ICD-10-PCS; principal; 2020-11-02)
PROC: 0T768DZ Dilation of Right Ureter with Intraluminal Device, Via Natural or Artificial Opening Endoscopic (ICD-10-PCS; 2020-11-02)
PROC: 02HV33Z Insertion of Infusion Device into Superior Vena Cava, Percutaneous Approach (ICD-10-PCS; 2020-11-02)
PROC: 0BH17EZ Insertion of Endotracheal Airway into Trachea, Via Natural or Artificial Opening (ICD-10-PCS; 2020-11-03)
PROC: 5A1945Z Respiratory Ventilation, 24-96 Consecutive Hours (ICD-10-PCS; 2020-11-03)
DX: A41.51 Sepsis due to Escherichia coli [E. coli] (principal); R65.21 Severe sepsis with septic shock; J80 Acute respiratory distress syndrome; N17.0 Acute kidney failure with tubular necrosis; I21.A1 Myocardial infarction type 2; E87.2 Acidosis; N13.6 Pyonephrosis; D62 Acute posthemorrhagic anemia; E87.0 Hyperosmolality and hypernatremia; Z20.822 Contact with and (suspected) exposure to COVID-19; E87.6 Hypokalemia; E83.42 Hypomagnesemia; E11.65 Type 2 diabetes mellitus with hyperglycemia; E11.40 Type 2 diabetes mellitus with diabetic neuropathy, unspecified; F17.210 Nicotine dependence, cigarettes, uncomplicated; M79.7 Fibromyalgia; E78.5 Hyperlipidemia, unspecified; D69.6 Thrombocytopenia, unspecified; E87.70 Fluid overload, unspecified; E11.22 Type 2 diabetes mellitus with diabetic chronic kidney disease; I12.9 Hypertensive chronic kidney disease with stage 1 through stage 4 chronic kidney disease, or unspecified chronic kidney disease; N18.9 Chronic kidney disease, unspecified; Z79.84 Long term (current) use of oral hypoglycemic drugs; Z82.3 Family history of stroke; Z90.710 Acquired absence of both cervix and uterus; Z88.8 Allergy status to other drugs, medicaments and biological substances; Z82.49 Family history of ischemic heart disease and other diseases of the circulatory system; Z79.899 Other long term (current) drug therapy
CPT/HCPCS: 0240U; 36415; 36416; 36556; 36600; 51600; 51701; 70450; 71045; 71250; 74177; 74430; 80048; 80053; 80069; 80202; 81001; 81003; 81015; 82010; 82542; 82550; 82553; 82805; 83010; 83036; 83605; 83615; 83690; 83735; 84100; 84484; 84703; 85025; 85379; 85610; 85730; 87040; 87070; 87077; 87086; 87102; 87149; 87186; 87205; 87206; 93005; 93010; 93306; 94002; 94003; 94640; 94660; 94760; 96365; 96366; 96367; 96368; 96375; C2625; J0692; J0696; J1100; J1450; J1644; J1650; J1720; J1815; J1940; J1956; J2060; J2185; J2370; J2405; J2543; J2704; J2765; J3010; J3370; J3475; J3480; J3490; J7050; P9045; Q9966; Q9967; S0028